=== PATIENT | female | born 1970 | race Asian ===

== ENCOUNTER 2020-08-04 13:19 | Emergency (ER) | payer BC, OTHER ==
[~2020-08-04] VITALS: Ht 157.5 cm; Wt 55.7 kg
--- NOTE | 2020-08-04 13:32 | NUR ---
PT AMBULATORY TO ROOM FROM TRIAGE, AT BS. CONNECTED TO MONITORS, CALL LIGHT WITHIN REACH
--- NOTE | 2020-08-04 13:36 | NUR ---
PA AT BS
[2020-08-04] MEDS ORDERED: PROPARACAINE OPHTH 0.5%, 15ML ONE (13:40)
[2020-08-04] MEDS ORDERED: FLUORESCEIN OPHTHALMIC 1 MG STRIP ONE (13:40)
--- NOTE | 2020-08-04 14:20 | NUR ---
PT SITTING ON EYE CHAIR CALMLY WITH LIGHTS DIMMED. AT BS. CALL LIGHT WITHIN REACH. NO NEEDS AT THIS TIME
--- NOTE | 2020-08-04 14:21 | NUR ---
PA AT BS
[2020-08-04 14:23] VITALS: BP 97/58
--- NOTE | 2020-08-04 14:47 | NUR ---
Patient given discharge instructions and they have confirmed that they understand the instructions. Patient ambulatory with steady gait.
== END 2020-08-04 14:48 | disposition home or self-care (01) ==
LOC: ED 14:30
DX: H10.12 Acute atopic conjunctivitis, left eye (principal); H57.12 Ocular pain, left eye
CPT/HCPCS: 99283